=== PATIENT | male | born 1990 | race American Indian/Alaskan Native ===

== ENCOUNTER 2017-02-01 12:22 | Emergency (ER) | payer OTHER ==
[2017-02-01 12:35] VITALS: TEMP 100.1; O2SAT 97
--- NOTE | 2017-02-01 13:21 | C.PDOC ---
History Of Present Illness 26 y/o male presents to ED with c/o flu like symptoms including headache, nasal congestion, facial pain, sinus pressure, and fever for 2 days. Patient also reports urinary frequency yesterday but denies dysuria or abdominal pain. Otherwise, denies cough, nausea, vomiting, diarrhea, or other associated symptoms. Time Seen by Provider: 02/01/17 12:42 Chief Complaint (Nursing): Flu-like Symptoms History Per: Patient History/Exam Limitations: no limitations Onset/Duration Of Symptoms: Days (2) Current Symptoms Are (Timing): Still Present Sick Contacts (Context): None Associated Symptoms: Fever, Nasal Congestion. denies: Cough, Vomiting, Diarrhea Ear Symptoms: Bilateral: None Recent travel outside of the [place]: No Past Medical History Reviewed: Historical Data, Nursing Documentation, Vital Signs Vital Signs: Last Vital Signs Temp 100.1 F H 02/01/17 12:34 Pulse 90 02/01/17 12:34 Resp 20 02/01/17 12:34 BP 117/75 02/01/17 12:34 Pulse Ox 97 02/01/17 13:24 - Medical History PMH: Diverticulitis Family History: States: Unknown Family Hx - Social History Hx Alcohol Use: No Hx Substance Use: No - Immunization History Hx Tetanus Toxoid Vaccination: Yes Hx Influenza Vaccination: No Hx Pneumococcal Vaccination: No Review Of Systems Except As Marked, All Systems Reviewed And Found Negative. Constitutional: Positive for: Fever ENT: Positive for: Nose Congestion, Other (facial pain, sinus pressure). Negative for: Ear Pain, Throat Pain Cardiovascular: Negative for: Chest Pain Respiratory: Negative for: Cough Gastrointestinal: Negative for: Nausea, Vomiting, Abdominal Pain, Diarrhea Skin: Negative for: Rash Neurological: Positive for: Headache Physical Exam - Physical Exam Appears: Non-toxic, No Acute Distress Skin: Normal Color, Warm, Dry Head: Atraumatic, Normacephalic Eye(s): bilateral: Normal Inspection, PERRL, EOMI Ear(s): Bilateral: Normal Nose: Normal Oral Mucosa: Moist Throat: Normal, No Erythema, No Exudate Neck: Supple Chest: Symmetrical Cardiovascular: Rhythm Regular Respiratory: Normal Breath Sounds, No Rales, No Rhonchi, No Wheezing Gastrointestinal/Abdominal: Soft, No Tenderness Back: Normal Inspection Extremity: Normal ROM, Capillary Refill (< 2 sec. ) Neurological/Psych: Oriented x3, Normal Speech, Normal Cognition ED Course And Treatment O2 Sat by Pulse Oximetry: 97 (ra) Pulse Ox Interpretation: Normal Medical Decision Making Medical Decision Making: Impression: 26 y/o male with flu like symptoms for 2 days, urinary frequency since yesterday, physical examination unremarkable Plan: -- Flu swab test -- Urinalysis -- Reassess and disposition Prior Visits: Notes and results from previous visits were reviewed. Progress Notes: Urinalysis and Influenza test was negative. Patient remained afebrile and in no acute distress. Advise patient symptoms viral and recommend supportive treatment Disposition Counseled Patient/Family Regarding: Diagnosis, Need For Followup, Rx Given - Disposition Disposition: HOME/ ROUTINE Disposition Time: 13:39 Condition: STABLE Additional Instructions: Take Tylenol or Motrin alternating every 4-6 hours for Fever 100.4F or higher. Rest and drink plenty of fluids. May use cool mist humidifier or vaporizer in room. Try taking over the counter antihistamine (Claritin, Linda, Zyrtec), Decongestant or Cough medicine (Mucinex) as needed every 6-8 hours. Follow up with your primary medical doctor or clinic in 1 week for further evaluation. Prescriptions: Fluticasone Propionate [Flonase] 1 spray NS DAILY #1 bottle Pseudoephedrine HCl [Sudafed] 30 mg PO Q6 #24 tablet Instructions: Sinusitis (ED) - POA Present On Arrival: None - Clinical Impression Clinical Impression: Sinusitis - PA / ACQUISITION EDITOR / Resident Statement MD/DO has reviewed & agrees with the documentation as recorded. - Scribe Statement The provider has reviewed the documentation as recorded by the Fatou Monzon All medical record entries made by the Fatou were at my direction and personally dictated by me. I have reviewed the chart and agree that the record accurately reflects my personal performance of the history, physical exam, medical decision making, and the department course for this patient. I have also personally directed, reviewed, and agree with the discharge instructions and disposition.
[2017-02-01 13:26] LABS: URINE BILIRUBIN NEGATIVE (NEGATIVE); URINE BLOOD NEGATIVE (NEGATIVE); URINE COLOR Yellow (YELLOW); URINE GLUCOSE (UA) NORMAL (Normal); URINE KETONE NEGATIVE (NEGATIVE); URINE LEUKOCYTE ESTERASE NEG Leu/uL (Negative); URINE PROTEIN NEGATIVE (NEGATIVE); URINE UROBILINOGEN NORMAL mg/dL (0.2-1.0); WBC URINE 1 /hpf (0-5)
[2017-02-01 14:11] VITALS: BP 132/70; PULSE 78; RESP 18
== END 2017-02-01 13:35 | disposition home or self-care (01) ==
LOC: C.ER 12:22 → SUPCPDRO 12:22 → C.ER 13:35
DX: J32.9 Chronic sinusitis, unspecified (principal)

== ENCOUNTER 2017-02-02 18:49 | Emergency (ER) | payer SELFPAY ==
[2017-02-02 19:10] VITALS: TEMP 98.2; O2SAT 97
--- NOTE | 2017-02-02 19:51 | C.PDOC ---
History Of Present Illness Patient is a 26 year old male who presents to the ER with a complaint of fever, chills, body aches, headache, and flu like symptoms since Tuesday. Patient was seen yesterday in the ER with a fever of 103 and had a rapid flu test done yesterday. Patient also noticed today he has a swollen bug bite carmenza on his back. Patient denies any abdominal pain, dysuria, cough, or diarrhea. Time Seen by Provider: 02/02/17 19:36 Chief Complaint (Nursing): Flu-like Symptoms History Per: Patient History/Exam Limitations: no limitations Onset/Duration Of Symptoms: Days (Since tuesday) Current Symptoms Are (Timing): Still Present Location Of Pain: Diffuse Myalgias, Headache Associated Symptoms: Fever, Chills, Myalgias, Nasal Congestion (Minimal). denies: Cough, Diarrhea Past Medical History Reviewed: Historical Data, Nursing Documentation, Vital Signs Vital Signs: Last Vital Signs Temp 98.2 F 02/02/17 19:05 Pulse 78 02/02/17 19:05 Resp 18 02/02/17 19:05 BP 107/78 02/02/17 19:05 Pulse Ox 97 02/02/17 19:57 - Medical History PMH: Diverticulitis Family History: States: Unknown Family Hx - Social History Hx Alcohol Use: Yes Hx Substance Use: No - Immunization History Hx Tetanus Toxoid Vaccination: Yes Hx Influenza Vaccination: No Hx Pneumococcal Vaccination: No Review Of Systems Constitutional: Positive for: Fever, Chills ENT: Positive for: Nose Congestion (Minimal) Cardiovascular: Negative for: Chest Pain, Palpitations Respiratory: Negative for: Cough, Shortness of Breath Gastrointestinal: Negative for: Abdominal Pain, Diarrhea Genitourinary: Negative for: Dysuria Physical Exam - Physical Exam Appears: Non-toxic Skin: Diaphoretic, Other Head: Atraumatic, Normacephalic Oral Mucosa: Moist Throat: Other (Inflammation) Cardiovascular: Rhythm Regular Respiratory: Normal Breath Sounds, No Rales, No Rhonchi, No Wheezing Gastrointestinal/Abdominal: Soft, No Tenderness Back: Other (Red bite carmenza, about the size of a half dollar on left lower back. Indurated and erythematous.) Neurological/Psych: Oriented x3, Normal Speech, Normal Cognition ED Course And Treatment - Laboratory Results Result Diagrams: 02/02/17 20:01 02/02/17 20:01 Lab Interpretation: No Acute Changes (WBC 4.6, Rapid strep and flu negative) O2 Sat by Pulse Oximetry: 97 (Room air) Pulse Ox Interpretation: Normal - Radiology CXR: Interpreted by Me CXR Interpretation: Yes: No Acute Disease Progress Note: Blood work, rapid strep, influenza A B, urinalysis, and chest x- ray ordered. Reevaluation Time: 20:43 Reassessment Condition: Improved (Patient resting quietly and is comfortable.) Disposition Counseled Patient/Family Regarding: Studies Performed, Diagnosis, Need For Followup, Rx Given - Disposition Referrals: [facility] [Outside] Disposition: HOME/ ROUTINE Disposition Time: 20:45 Condition: STABLE Prescriptions: Doxycycline Monohydrate 100 mg PO BID #20 tablet Instructions: Cellulitis (ED), Viral Syndrome (ED) - Clinical Impression Clinical Impression: Influenza-like illness, Cellulitis of trunk - Scribe Statement The provider has reviewed the documentation as recorded by the Scribdorothy Tinsley All medical record entries made by the Breannaibdorothy were at my direction and personally dictated by me. I have reviewed the chart and agree that the record accurately reflects my personal performance of the history, physical exam, medical decision making, and the department course for this patient. I have also personally directed, reviewed, and agree with the discharge instructions and disposition.
[2017-02-02 20:09] LABS: BASO % 0.7 % (0.0-2.0); HEMATOCRIT 44.8 % (35.0-51.0); LYMPH # 1.2 K/uL (1.0-4.3); LYMPH % 25.8 % (20.0-40.0); MEAN CELL VOLUME 81.7 fL (80.0-94.0); MEAN CORPUSCULAR HEMOGLOBIN 28.6 pg (27.0-31.0); MEAN PLATELET VOLUME 8.4 fL (7.2-11.7); MONO # 0.4 K/uL (0.0-0.8); MONO % 8.7 % (0.0-10.0); NRBC % 0.1 % (0.0-2.0); RED CELL DISTRIBUTION WIDTH 14.6 % (11.5-14.5); WHITE BLOOD COUNT 4.6 K/uL (4.8-10.8)
[2017-02-02 20:12] LABS: CHLORIDE 95 mmol/L (98-107); POTASSIUM 3.7 mmol/L (3.6-5.2); SODIUM 138 mmol/L (132-148)
[2017-02-02 20:14] LABS: BILIRUBIN,TOTAL 1.4 mg/dL (0.2-1.3); CARBON DIOXIDE 27 mmol/L (22-30); GFR AFRICAN-AMERICAN > 60
[2017-02-02 20:15] LABS: ALB/GLOB RATIO 1.2 (1.0-2.1); ALKALINE PHOSPHATASE 97 U/L (38-126); ALT/SGPT 60 U/L (21-72); AST/SGOT 76 U/L (17-59); BLOOD UREA NITROGEN 12 mg/dL (9-20); CALCIUM 8.6 mg/dl (8.6-10.4); GLUCOSE,RANDOM 86 mg/dL (75-110); TOTAL PROTEIN 8.1 g/dL (6.3-8.3)
[2017-02-02 20:58] LABS: RBC URINE 1 /hpf (0-3); URINE BILIRUBIN NEGATIVE (NEGATIVE); URINE BLOOD NEGATIVE (NEGATIVE); URINE GLUCOSE (UA) NORMAL (Normal); URINE KETONE NEGATIVE (NEGATIVE); URINE LEUKOCYTE ESTERASE NEG Leu/uL (Negative); URINE PROTEIN 1+ mg/dL (NEGATIVE); URINE UROBILINOGEN NORMAL mg/dL (0.2-1.0); WBC URINE 2 /hpf (0-5)
[2017-02-02 21:02] LABS: URINE COLOR YELLOW (YELLOW)
[2017-02-02 21:25] VITALS: BP 125/84; PULSE 75; RESP 15
--- NOTE | 2017-02-03 10:34 | RAD ---
HISTORY: SOB COMPARISON: None available. TECHNIQUE: Chest PA and lateral FINDINGS: Examination limited by habitus. LUNGS: No focal consolidation. Please note that chest x-ray has limited sensitivity for the detection of pulmonary masses. PLEURA: No significant pleural effusion identified. No definite pneumothorax . CARDIOVASCULAR: The cardiomediastinal silhouette appears within normal limits of size. OSSEOUS STRUCTURES: No acute osseous abnormality identified. VISUALIZED UPPER ABDOMEN: Unremarkable. OTHER FINDINGS: None. IMPRESSION: No focal consolidation, significant pleural effusion, or definite pneumothorax identified.
== END 2017-02-02 21:23 | disposition home or self-care (01) ==
LOC: C.ER 18:49
DX: L03.312 Cellulitis of back [any part except buttock and flank] (principal); J11.1 Influenza due to unidentified influenza virus with other respiratory manifestations

== ENCOUNTER 2017-02-04 22:30 | Emergency (ER) | payer SELFPAY ==
[2017-02-04 22:50] VITALS: RESP 20
--- NOTE | 2017-02-04 23:27 | C.PDOC ---
History Of Present Illness 26 year old male presents to the ED with complaints of fever, dry cough, chills , and constipation for the past 5 days. Patient states he was seen in the ER twice before for similar complaints, however today he developed left sided abdominal pain with associated nausea. He notes he has a history of diverticulitis in the past and reports he still has urinary frequency. Denies vomiting, diarrhea, dysuria, back pain, or any other complaints at this time. Time Seen by Provider: 02/04/17 22:54 Chief Complaint (Nursing): Flu-like Symptoms History Per: Patient History/Exam Limitations: no limitations Onset/Duration Of Symptoms: Days Current Symptoms Are (Timing): Still Present Associated Symptoms: Fever, Chills, Cough, Nausea. denies: Vomiting, Diarrhea Ear Symptoms: Bilateral: None Severity: Mild Past Medical History Reviewed: Historical Data, Nursing Documentation, Vital Signs Vital Signs: Last Vital Signs Temp 97.7 F 02/05/17 02:23 Pulse 65 02/05/17 02:23 Resp 20 02/05/17 02:23 BP 118/75 02/05/17 02:23 Pulse Ox 97 02/05/17 02:23 - Medical History PMH: Diverticulitis Family History: States: Unknown Family Hx - Social History Hx Alcohol Use: Yes Hx Substance Use: No - Immunization History Hx Tetanus Toxoid Vaccination: Yes Hx Influenza Vaccination: No Hx Pneumococcal Vaccination: No Review Of Systems Except As Marked, All Systems Reviewed And Found Negative. Constitutional: Positive for: Fever, Chills Respiratory: Positive for: Cough. Negative for: Shortness of Breath, Sputum Gastrointestinal: Positive for: Nausea, Abdominal Pain, Constipation. Negative for: Vomiting, Diarrhea Genitourinary: Positive for: Frequency. Negative for: Dysuria Musculoskeletal: Negative for: Back Pain Physical Exam - Physical Exam Appears: Non-toxic, No Acute Distress Skin: Normal Color, Warm, Dry, Other ((+) 1cm mildly indurated bite like wound with no erythema, tenderness, or swelling to the left lower back ) Head: Atraumatic, Normacephalic Eye(s): bilateral: Normal Inspection, PERRL, EOMI Ear(s): Bilateral: Normal Oral Mucosa: Moist Throat: No Erythema, No Exudate Neck: Normal ROM, Supple Chest: Symmetrical, No Deformity Cardiovascular: Rhythm Regular, No Friction Rub, No Murmur Respiratory: Normal Breath Sounds, No Accessory Muscle Use, No Rales, No Rhonchi , No Wheezing Gastrointestinal/Abdominal: Soft, Tenderness (+LLQ tenderness), No Distention, No Guarding, No Rebound Back: No CVA Tenderness Extremity: Normal ROM, No Deformity, No Swelling Neurological/Psych: Oriented x3, Normal Speech, Normal Cognition, Normal Motor Gait: Steady ED Course And Treatment - Laboratory Results Result Diagrams: 02/04/17 23:49 02/04/17 23:49 O2 Sat by Pulse Oximetry: 99 (Room air) Pulse Ox Interpretation: Normal - CT Scan/US CT ABD & Pelvis w/contrast Other Rad Studies (CT/US): Read By Radiologist, Radiology Report Reviewed CT/US Interpretation: FINDINGS: Lower thorax: Small subpleural nodule image 17 left lower lobe. ABDOMEN: Liver: Unremarkable. No mass. Gallbladder and bile ducts: Unremarkable. No calcified stones. No ductal dilation. Pancreas: Unremarkable. No mass. No ductal dilation. Spleen: Unremarkable. No splenomegaly. Adrenals: Unremarkable. No mass. Kidneys and ureters: Unremarkable. No solid mass. No hydronephrosis. Stomach and bowel: Moderate fecal retention. Diverticulosis of the colon is identified however there. is no focal diverticulitis. Appendix: No findings to suggest acute appendicitis. PELVIS: Bladder: Unremarkable. No mass. Reproductive: Unremarkable as visualized. ABDOMEN and PELVIS: Intraperitoneal space: Unremarkable. No free air. No significant fluid collection. Bones/joints: No acute fracture. No dislocation. Soft tissues: Unremarkable. Vasculature: Unremarkable. No abdominal aortic aneurysm. Lymph nodes: Unremarkable. No enlarged lymph nodes. IMPRESSION: Moderate fecal retention. Diverticulosis of the colon is identified however there is no focal diverticulitis. Medical Decision Making Medical Decision Making: Old records reviewed, the patient was seen in the ED on 02/01/17 and 02/02/17 for similar symptoms and had negative lab work, negative UA, and discharged home. Patient was also treated for a possible bug bite to the lower back but he never got the RX for doxycycline. States that the doxy RX is too expensive Plan: -CT ABD & Pelvis w/contrast -Blood work -Urinalysis -Chlamydia/GC RNA -Toradol -Zofran -IV fluids -Reassess The patient was treated for possible GC/chlamydia with zithromax and rocephin for urinary frequency and pressure. Bactrim PO given for bite like wound to the lower back. On re-exam, the patient remains active and playful. Lungs are CTA, heart is RRR , abdomen is soft, non-tender and tolerating PO well. Follow up with the medical doctor within 1-2 days. Return if worsened, Disposition - Disposition Referrals: [facility] [Outside] Disposition: HOME/ ROUTINE Disposition Time: 01:59 Condition: GOOD Additional Instructions: Follow up with the medical doctor within 1-2 days without fail. Return if worsened. Prescriptions: Sulfamethoxazole/Trimethoprim [Bactrim DS 800 mg-160 mg] 1 tab PO BID #14 tab Polyethylene Glycol 3350 [Miralax] 17 gm PO DAILY PRN #100 ml PRN Reason: Constipation Ibuprofen [Motrin Tab] 800 mg PO TID #20 tab predniSONE [Prednisone] 20 mg PO BID #10 tab Instructions: High Fiber Diet (ED), Constipation (GEN), Viral Syndrome (ED) - Clinical Impression Clinical Impression: Influenza-like illness, Constipation, Dysuria - PA / SPONSORSHIP COORDINATOR / Resident Statement MD/DO has reviewed & agrees with the documentation as recorded. - Scribe Statement The provider has reviewed the documentation as recorded by the Scribe Bo Kirkpatrick. All medical record entries made by the Scribe were at my direction and personally dictated by me. I have reviewed the chart and agree that the record accurately reflects my personal performance of the history, physical exam, medical decision making, and the department course for this patient. I have also personally directed, reviewed, and agree with the discharge instructions and disposition.
[2017-02-04] MEDS ORDERED: Sodium Chloride 0.9% 1,000 ML IV ONE (23:34)
[2017-02-04] MEDS ORDERED: Sodium Chloride 0.9% 1,000 ML ONE (23:45)
[2017-02-04 23:52] LABS: BASO % 0.6 % (0.0-2.0); EOS % 0.1 % (0.0-4.0); HEMATOCRIT 43.5 % (35.0-51.0); LYMPH # 1.3 K/uL (1.0-4.3); LYMPH % 41.8 % (20.0-40.0); MEAN CELL VOLUME 82.6 fL (80.0-94.0); MEAN CORPUSCULAR HEMOGLOBIN 28.2 pg (27.0-31.0); MEAN CORPUSCULAR HGB CONC 34.1 g/dL (33.0-37.0); MEAN PLATELET VOLUME 8.4 fL (7.2-11.7); MONO # 0.4 K/uL (0.0-0.8); MONO % 11.8 % (0.0-10.0); NRBC % 0.2 % (0.0-2.0); RED CELL DISTRIBUTION WIDTH 14.4 % (11.5-14.5); WHITE BLOOD COUNT 3.1 K/uL (4.8-10.8)
[2017-02-04 23:58] LABS: RBC URINE < 1 /hpf (0-3); TRANSITIONAL EPITHIAL < 1 /hpf (0-3); URINE BACTERIA RARE (<OCC); URINE BILIRUBIN NEGATIVE (NEGATIVE); URINE BLOOD NEGATIVE (NEGATIVE); URINE COLOR Amber (YELLOW); URINE GLUCOSE (UA) NORMAL (Normal); URINE KETONE NEGATIVE (NEGATIVE); URINE LEUKOCYTE ESTERASE NEG Leu/uL (Negative); URINE PROTEIN NEGATIVE (NEGATIVE); URINE UROBILINOGEN NORMAL mg/dL (0.2-1.0); WBC URINE 3 /hpf (0-5)
[2017-02-05] LABS: CHLORIDE 95 mmol/L (98-107); POTASSIUM 3.8 mmol/L (3.6-5.2); SODIUM 139 mmol/L (132-148)
[2017-02-05 00:02] LABS: ALB/GLOB RATIO 1.1 (1.0-2.1); AST/SGOT 55 U/L (17-59); BILIRUBIN,TOTAL 0.8 mg/dL (0.2-1.3); CARBON DIOXIDE 30 mmol/L (22-30); GFR AFRICAN-AMERICAN > 60; TOTAL PROTEIN 7.3 g/dL (6.3-8.3)
[2017-02-05 00:03] LABS: ALKALINE PHOSPHATASE 87 U/L (38-126); ALT/SGPT 63 U/L (21-72); BLOOD UREA NITROGEN 7 mg/dL (9-20); CALCIUM 8.1 mg/dl (8.6-10.4); GLUCOSE,RANDOM 109 mg/dL (75-110)
[2017-02-05] MEDS ORDERED: Iodixanol 320 MG/ML 100 ML BOTTLE IV ONE (00:08)
[2017-02-05] MEDS ORDERED: cefTRIAXone (Rocephin) 250 mg Inj IM STA (01:57)
[2017-02-05 02:25] VITALS: BP 118/75; PULSE 65; TEMP 97.7
[2017-02-05 06:47] VITALS: O2SAT 99
--- NOTE | 2017-02-05 08:45 | CT ---
PROCEDURE: CT Abdomen and Pelvis with intravenous contrast HISTORY: Left lower quadrant abdominal pain. COMPARISON: None. TECHNIQUE: Multiple contiguous axial images were performed through the abdomen and pelvis with the use of intravenous contrast. Subsequently, sagittal coronal reformatted images were obtained. Radiation dose: Total exam DLP = 1392 mGy-cm. This CT exam was performed using one or more of the following dose reduction techniques: Automated exposure control, adjustment of the mA and/or kV according to patient size, and/or use of iterative reconstruction technique. FINDINGS: LOWER THORAX: Small subpleural nodule image 17 in the left lower lobe measuring 4 millimeters. 2 millimeter nodule seen in a subpleural position in the anterolateral aspect of the right middle lobe. Additional punctate subpleural pulmonary nodule seen more anteriorly inferiorly in the right middle lobe. 5 millimeters subpleural pulmonary nodule seen within the left lower lobe. LIVER: Unremarkable. No gross lesion or ductal dilatation. GALLBLADDER AND BILE DUCTS: Unremarkable. PANCREAS: Unremarkable. No gross lesion or ductal dilatation. SPLEEN: Mildly prominent spleen. ADRENALS: Unremarkable. No mass. KIDNEYS AND URETERS: Unremarkable. No hydronephrosis. No solid mass. VASCULATURE: Unremarkable. No aortic aneurysm. BOWEL: Unremarkable. No obstruction. No gross mural thickening. Moderate fecal retention in the colon. Diverticulosis. APPENDIX: No findings to suggest acute appendicitis. PERITONEUM: Unremarkable. No free fluid. No free air. LYMPH NODES: Unremarkable. No enlarged lymph nodes. BLADDER: Unremarkable. REPRODUCTIVE: Unremarkable. BONES: No acute fracture. OTHER FINDINGS: None. IMPRESSION: Moderate fecal retention. Diverticulosis of the colon without evidence of focal diverticulitis. Mildly prominent spleen, nonspecific. Punctate pulmonary nodules in both lungs. Three to 6 month interval followup may be helpful if clinically indicated. Additional findings as above. These findings were preliminarily reported at 1:39 a.m. on 02/05/[address] Rambo Gonzalez from [employer].
== END 2017-02-05 02:25 | disposition home or self-care (01) ==
LOC: C.ER 22:30
DX: J11.1 Influenza due to unidentified influenza virus with other respiratory manifestations (principal); K59.00 Constipation, unspecified; R30.0 Dysuria
CPT/HCPCS: 74177; 80053; 81001; 83690; 85025; 87086; 87491; 87591; 96361; 96372; 96374; 96375; 99284; J0696; J1885; J2405; J7040; Q9967

== ENCOUNTER 2017-12-10 15:40 | Emergency (ER) | payer OTHER ==
[2017-12-10 15:51] VITALS: RESP 20
--- NOTE | 2017-12-10 16:45 | RAD ---
HISTORY: chest pain COMPARISON: Chest x-ray performed 02/02/17 TECHNIQUE: Chest PA and lateral FINDINGS: Examination limited by habitus. LUNGS: No focal consolidation. Please note that chest x-ray has limited sensitivity for the detection of pulmonary masses. PLEURA: No significant pleural effusion identified. No definite pneumothorax . CARDIOVASCULAR: The cardiomediastinal silhouette appears within normal limits of size. OSSEOUS STRUCTURES: No acute osseous abnormality identified. VISUALIZED UPPER ABDOMEN: Mild elevation of the right hemidiaphragm. OTHER FINDINGS: None. IMPRESSION: No focal consolidation identified.
[2017-12-10 16:57] LABS: BASO % 0.3 % (0.0-2.0); EOS # 0.2 K/uL (0.0-0.7); EOS % 2.2 % (0.0-4.0); HEMOGLOBIN 16.1 g/dL (12.0-18.0); LYMPH # 2.1 K/uL (1.0-4.3); LYMPH % 28.9 % (20.0-40.0); MEAN CELL VOLUME 82.7 fL (80.0-94.0); MEAN CORPUSCULAR HEMOGLOBIN 28.7 pg (27.0-31.0); MEAN CORPUSCULAR HGB CONC 34.7 g/dL (33.0-37.0); MEAN PLATELET VOLUME 8.3 fL (7.2-11.7); MONO # 0.5 K/uL (0.0-0.8); MONO % 6.6 % (0.0-10.0); NEUT # 4.4 K/uL (1.8-7.0); NRBC % 0.1 % (0.0-2.0); RBC 5.59 Mil/uL (4.40-5.90); RED CELL DISTRIBUTION WIDTH 14.5 % (11.5-14.5); WHITE BLOOD COUNT 7.1 K/uL (4.8-10.8)
[2017-12-10] MEDS ORDERED: Sodium Chloride 0.9% 1,000 ML IV ONE (16:59)
[2017-12-10] MEDS ORDERED: Sodium Chloride 0.9% 1,000 ML ONE (17:08)
[2017-12-10 17:09] LABS: BLOOD UREA NITROGEN 8 mg/dL (9-20); GFR AFRICAN-AMERICAN > 60; GFR NON-AFRICAN AMERICAN > 60
--- NOTE | 2017-12-10 17:09 | C.PDOC ---
History Of Present Illness 27 yo male obese, w/o significant PMHx, comes in for evaluation of left sided chest pain intermittent for past 2 weeks associated with intermittent nausea, headache. Pt reports, noted pain is worse mostly night night, supine position. Pt admits, Otherwise, pt denies fever, chills, severe headache, dizziness, visual changes, neck pain, SOB, dyspnea, diaphoresis, palpitating, abd. pain, V/ D, back pain, UTI sx. Pt denies previous hx of card. ds. Ambulate to Ed for evaluation, not in any apparent distress. Time Seen by Provider: 12/10/17 16:08 Chief Complaint (Nursing): Chest Pain History Per: Patient Onset/Duration Of Symptoms: Intermittent Episodes Past Medical History Reviewed: Historical Data, Nursing Documentation, Vital Signs Vital Signs: Last Vital Signs Temp 98.6 F 12/10/17 15:51 Pulse 98 H 12/10/17 15:51 Resp 20 12/10/17 15:51 BP 144/87 12/10/17 15:51 Pulse Ox 96 12/10/17 17:27 - Medical History PMH: Diverticulitis Other PMH: Overwieght Family History: States: No Known Family Hx Denies: OK (kaden) - Social History Hx Tobacco Use: No Hx Alcohol Use: Yes Hx Substance Use: No - Immunization History Hx Tetanus Toxoid Vaccination: Yes Hx Influenza Vaccination: No Hx Pneumococcal Vaccination: No Review Of Systems Except As Marked, All Systems Reviewed And Found Negative. Constitutional: Negative for: Fever, Chills ENT: Negative for: Throat Pain, Throat Swelling Cardiovascular: Positive for: Chest Pain. Negative for: Palpitations, Edema, Light Headedness Respiratory: Negative for: Cough, Shortness of Breath Gastrointestinal: Positive for: Nausea. Negative for: Vomiting, Abdominal Pain , Diarrhea Musculoskeletal: Negative for: Neck Pain, Back Pain Skin: Negative for: Rash Neurological: Negative for: Weakness, Numbness, Altered Mental Status Physical Exam - Physical Exam Appears: Well, Non-toxic, No Acute Distress Skin: Normal Color, Warm, Dry, No Rash Head: Normacephalic Eye(s): bilateral: PERRL Nose: No Flaring, No Discharge, No Tenderness Throat: No Drooling Neck: Trachea Midline, Supple Cardiovascular: Rhythm Regular, No Murmur, No JVD, Other ((-) carotid bruits B/L ) Respiratory: No Decreased Breath Sounds, No Accessory Muscle Use, No Stridor, No Wheezing, No Plerual Rub Gastrointestinal/Abdominal: Soft, No Tenderness, No Distention, No Guarding Back: No CVA Tenderness Extremity: Normal ROM, No Pedal Edema, No Deformity, No Swelling Neurological/Psych: Oriented x3, Normal Speech ED Course And Treatment - Laboratory Results Result Diagrams: 12/10/17 16:53 12/10/17 16:53 Lab Interpretation: Normal ECG: Interpreted By Me, Viewed By Me ECG Rhythm: Sinus Rhythm ECG Interpretation: Normal Interpretation Of ECG: SR@79/min, NAD, no acute T wave or ST-T changes. O2 Sat by Pulse Oximetry: 96 Pulse Ox Interpretation: Normal - Radiology CXR: Interpreted by Me, Viewed By Me CXR Interpretation: Yes: No Acute Disease Progress Note: On re-evaluation, pt is awake, comfortable, not in any apparent distress. Non-toxic. PulsEOx 96% RA. ENT: normal exam. Neck: Supple, (-) JVD , (-) carotid bruits B/L. CVS: (+)S1S2, reg. Lungs: CTA B/L, BS equal B/L. Abd : benign, (-) guarding, (-) rebound. Back: (-) CVA tenderness. Neuorlogicaly intact. Blood work review, appears normal, Troponin, D-Dimer negative. Case discussed with , results review, discharge with outpt F/U recommend. Pt has clinical findings c/w chest pain, nos. results review and discussed with pt. Pt advised. ref. to f/u with PMD, Card. in 2-3 days for re-eval. return to ED if any worsening or new changes. Disposition Counseled Patient/Family Regarding: Studies Performed, Diagnosis, Need For Followup, Rx Given - Disposition Referrals: [facility] [Outside] Disposition: HOME/ ROUTINE Disposition Time: 17:27 Condition: STABLE Additional Instructions: FOLLOW UP WITH PMD AND CARDIOLOGY IN 2-3 DAYS FOR RE-EVALUATION. RETURN TO ED IF ANY WORSENING OR NEW CHANGES. Instructions: Chest Pain (ED) Forms: [employer] ([place]i) - Clinical Impression Clinical Impression: Chest pain
[2017-12-10 17:14] LABS: INR 1.1; PARTIAL THROMBOPLASTIN TIME 35 SECONDS (21-34)
[2017-12-10 17:25] LABS: D DIMER < 200 ng/mlDDU (0-243)
[2017-12-10 17:26] LABS: B-TYPE NATRIURETIC PEPTIDE < 11.1 pg/mL (0-450)
[2017-12-10 18:29] VITALS: BP 141/86; PULSE 78; TEMP 97.9; O2SAT 99
--- NOTE | 2017-12-12 14:41 | CARD ---
APPROVED REPORT EKG Measurement Heart [id number] <Conclusion> Normal sinus rhythm Normal ECG
== END 2017-12-10 18:29 | disposition home or self-care (01) ==
LOC: C.ER 15:40
DX: R07.9 Chest pain, unspecified (principal)
CPT/HCPCS: 71046; 80048; 83880; 84484; 85025; 85378; 85610; 85730; 93005; 96361; 96374; 96375; 99284; C9113; J2405; J7040